=== PATIENT | male | born 1960 | race Two or more races ===

== ENCOUNTER → 2024-01-16 11:22 | Outpatient (REF) | payer BC, SELFPAY | LOC: HWRAD 11:22 | PROVIDERS: ATTENDING PHYSICIAN Internal Medicine Critical Care Medicine; FAMILY PHYSICIAN Family Medicine | DX: Z87.891 Personal history of nicotine dependence (principal) | CPT/HCPCS: 71271 ==

== ENCOUNTER 2024-08-11 11:55 | Outpatient (RCR) | payer BC, SELFPAY | END 2024-08-11 23:59 | disposition home or self-care (01) | LOC: ROT 11:55 | PROVIDERS: ATTENDING PHYSICIAN Orthopaedic Surgery; FAMILY PHYSICIAN Family Medicine | DX: Z47.89 Encounter for other orthopedic aftercare (principal); M65.341 Trigger finger, right ring finger; M79.641 Pain in right hand; M65.342 Trigger finger, left ring finger; Z73.6 Limitation of activities due to disability | CPT/HCPCS: 97018; 97035; 97110; 97140; 97166 ==

== ENCOUNTER 2024-08-31 14:12 | Outpatient (RCR) | payer BC, SELFPAY | END 2024-08-31 23:59 | disposition home or self-care (01) | LOC: ROT 14:12 | PROVIDERS: ATTENDING PHYSICIAN Orthopaedic Surgery; FAMILY PHYSICIAN Family Medicine | DX: Z47.89 Encounter for other orthopedic aftercare (principal); M65.341 Trigger finger, right ring finger; M79.641 Pain in right hand; M65.331 Trigger finger, right middle finger; M65.342 Trigger finger, left ring finger; Z73.6 Limitation of activities due to disability | CPT/HCPCS: 97018; 97110; 97140 ==

== ENCOUNTER 2024-09-21 10:24 | Outpatient (RCR) | payer BC, SELFPAY | END 2024-09-25 09:07 | disposition home or self-care (01) | LOC: ROT 10:24 | PROVIDERS: ATTENDING PHYSICIAN Orthopaedic Surgery; FAMILY PHYSICIAN Family Medicine | DX: Z47.89 Encounter for other orthopedic aftercare (principal); M65.341 Trigger finger, right ring finger; M65.331 Trigger finger, right middle finger; M79.641 Pain in right hand; M65.342 Trigger finger, left ring finger; Z73.6 Limitation of activities due to disability | CPT/HCPCS: 97018; 97110; 97140 ==

== ENCOUNTER → 2025-02-22 09:03 | Outpatient (REF) | payer BC, SELFPAY | LOC: HWRAD 09:03 | PROVIDERS: ATTENDING PHYSICIAN Internal Medicine Critical Care Medicine; FAMILY PHYSICIAN Family Medicine | DX: Z87.891 Personal history of nicotine dependence (principal) | CPT/HCPCS: 71271 ==